=== PATIENT | male | born 1960 | race Caucasian/White ===

== ENCOUNTER 2023-08-30 07:53 | Outpatient (CLI) | payer OTHER, SELFPAY ==
--- NOTE | 2023-08-30 08:06 | CT_ITS ---
FINAL REPORT TECHNIQUE: Thin section axial images were obtained from the lung apices to the upper abdomen by computed tomography. Reformatted images were obtained and reviewed. This study was performed with techniques to keep radiation doses al low as reasonably achievable (ALARA). Individualized dose reduction techniques using automated exposure control or adjustment of mA and/or kV according to the patient's size were employed. CLINICAL HISTORY: NICOTINE DEPENDENT former smoker x 2 years 1.5 ppd x 14 years COMPARISON: None FINDINGS: CHEST CT LOW DOSE: 63-year-old male, former smoker, quit 2 years ago, [id number] history. CTDI vol (mGy): 2.9 DLP (mGy-cm): 110.98 There is no axillary adenopathy. There is no mediastinal or hilar mass or adenopathy. The heart is normal in size. There is no pericardial or pleural effusion. Lung window images demonstrate an ovoid opacity in the major fissure, best seen on image #49 of series 4, measuring 8 mm in size. There is also a 9 mm nodule, pleural-based in the anterior right middle lobe, seen on image #40 of series 604 and image #52 of series 4.. Limited images of the upper abdomen are unremarkable. IMPRESSION: Lung-RADS category 4A. Recommend 3 month follow up low dose chest CT. Reviewed, Interpreted and Dictated by Mat Ceballos MD Transcribed by Rhoda Vasquez Authenticated and . [facility]
--- NOTE | 2023-08-30 08:07 | US_ITS ---
FINAL REPORT TECHNIQUE: Ultrasound images of the abdominal aorta were obtained. CLINICAL HISTORY: NICOTINE DEPENDENT COMPARISON: None FINDINGS: ULTRASOUND OF THE ABDOMINAL AORTA The aorta measures up to 1.9 cm. The bifurcation is normal. IMPRESSION: No evidence of abdominal aortic aneurysm. Reviewed, Interpreted and Dictated by Mat Ceballos MD Transcribed by Dulce Maria Guzman Authenticated and . [facility]
== END 2023-08-30 23:59 ==
LOC: RAD 07:59
PROVIDERS: PCP Internal Medicine Adolescent Medicine; Visit Provider Internal Medicine Adolescent Medicine
DX: Z87.891 Personal history of nicotine dependence (principal)
CPT/HCPCS: 71271; 76705